=== PATIENT | male | born 1950 | race Caucasian/White ===

== ENCOUNTER 2017-03-20 19:22 | Emergency (ER) | payer BC, MEDICARE ==
[~2017-03-20] VITALS: Ht 180.3 cm; Wt 96.0 kg
[~2017-03-20 19:22] MED LIST: ASPI1TAB69 PO; CIAL20TA PO; CLON0.2T PO; DORZ2SOL7 RIGHT EYE; EXENINJ SQ; FOSI40TA PO; GABA600T PO; HUMALOG SQ; HYDR-3583 PO; HYDR-3801 PO; KETO75 PO; L-ME1CAP2 PO; LANTINJ SQ; LOVA20TA PO; LUMI0.01 RIGHT EYE; METF-382 PO; METO50TA PO; MONT10TA4 PO; TEST200I13 IM; cpap
[2017-03-20 19:30] VITALS: BP 169/98; PULSE 88; RESP 18; TEMP 98.3; O2SAT 95
[2017-03-20] MEDS ORDERED: EMPA1TAB3 PO (19:43)
--- NOTE | 2017-03-20 19:59 | PD ---
HPI Chief Complaint: Musculoskeletal Complaint Time Seen by Provider: 19:45 Travel History International Travel<30 days: No Contact w/Intl Traveler<30days: No Traveled to known affect area: No History of Present Illness HPI 66-year-old male presents to the emergency department for evaluation of right knee pain. He reports that while walking he felt a sharp pain and a cracking sensation in the right knee. He now has difficulty weightbearing. He reports the pain as sharp, nonradiating, worse with movement and relieved with rest, severity 8 out of 10 He denies numbness/tingling/weakness in the extremity. PFSH Past Medical History Narrative Medical Significant for hypertension, hyperlipidemia, diabetes, Arthritis: Yes Asthma: No Autoimmune Disease: No Anxiety: No Depression: No Heart Rhythm Problems: No Cancer: Yes (skin) Cardiovascular Problems: Yes High Cholesterol: Yes Chemotherapy: No Chest Pain: No Congestive Heart Failure: No COPD: No Cerebrovascular Accident: No Diabetes: Yes (type 2) Patient Takes Glucophage: No Endocrine: Yes GERD: No Glaucoma: Yes Genitourinary: No Hiatal Hernia: No Hypertension: Yes Immune Disorder: No Kidney Stones: No Musculoskeletal: Yes Neurologic: Yes Psychiatric: No Reproductive: No Respiratory: Yes (SLEEP APNEA) Migraines: No Radiation Therapy: No Renal Failure: No Seizures: No Sickle Cell Disease: No Sleep Apnea: Yes (C-PAP MACHINE) Thyroid Disease: No Ulcer: No ?: Not Past Surgical History Abdominal Surgery: No AICD: No Arteriovenous Shunt: No Cardiac Surgery: No Ear Surgery: No Endocrine Surgery: No Eye Surgery: No Genitourinary Surgery: No Gynecologic Surgery: No Insulin Pump: No Joint Replacement: Yes (left knee) Neurologic Surgery: No Oral Surgery: No Pacemaker: No Thoracic Surgery: No Other Surgery: Yes (DEBRIEDMENT TO LEFT FOOT, CHARCOT SYNDROME BILATERAL FEET) Social History Alcohol Use: No Tobacco Use: No Substance Use: No Allergies-Medications (Allergen,Severity, Reaction): Coded Allergies: Sulfa (Verified Allergy, Unknown, 03/20/17) Hydrochlorothiazide (Verified Adverse Reaction, Intermediate, Dizziness, ) Reported Meds & Prescriptions Reported Meds & Active Scripts Active Fosinopril (Fosinopril Sodium) 40 Mg Tab 40 Mg PO BID Hydrocodone-Acetaminophen 10-325 mg Tab 1 Tab PO Q4H PRN not to be filled before 8-13-17 Gabapentin 600 Mg Tab 600 Mg PO QID Ketoprofen 75 Mg Cap 75 Mg PO TID Metoprolol Tartrate 50 Mg Tab 3 Tab PO BID Clonidine (Clonidine HCl) 0.2 Mg Tab 0.2 Mg PO BID Cialis (Tadalafil) 20 Mg Tab 20 Mg PO DAILY PRN Do not exceed 1 dose/day. Effects may last 36 hr. [cpap] headgear, nasal pillows and tubing Reported Hydralazine (Hydralazine HCl) 100 Mg Tab 50 Mg PO Q12 Take with meals Bydureon Inj (Exenatide) 2 Mg Vial 2 Mg SQ Q7D Testosterone Enanthate Inj (Testosterone Enanthate) 200 Mg/Ml Inj 185 Mg IM Q14D Montelukast (Montelukast Sodium) 10 Mg Tab 10 Mg PO HS Aspirin 81 Mg Tabdr 81 Mg PO DAILY Lumigan Opth Drops (Bimatoprost) 0.01% Soln 1 Drop RIGHT EYE HS Cosopt Opth Drops (Dorzolamide-Timolol Opth Drops) 22.3-6.8 Mg/Ml Soln 1 Drop RIGHT EYE BID Lantus Solostar Pen Inj (Insulin Glargine) 300 Unit/3 Ml Pen 30 Units SQ HS Lovastatin 20 Mg Tab 20 Mg PO HS Metanx (o-Bizznnqafmip-Bmdqv) 1 Cap 1 Caplet PO BID Metformin ER (Metformin HCl) 1,000 Mg Josseline 1,000 Mg PO BID With evening meal Review of Systems Except as stated in HPI: all other systems reviewed are Neg Physical Exam Narrative GENERAL: Alert, well-appearing male in no acute distress SKIN: Focused skin assessment warm/dry. HEAD: Atraumatic. Normocephalic. CARDIOVASCULAR: Regular rate and rhythm. No murmur appreciated. RESPIRATORY: No accessory muscle use. Clear to auscultation. Breath sounds equal bilaterally. GASTROINTESTINAL: Abdomen soft, non-tender, nondistended. Hepatic and splenic margins not palpable. MUSCULOSKELETAL: No obvious deformities. No clubbing. No cyanosis. No edema. Right knee: Nontender to palpation. Pain with flexion. No effusion. Distal pulses present. 70s neurovascular intact. NEUROLOGICAL: Awake and alert. No obvious cranial nerve deficits. Motor grossly within normal limits. Normal speech. PSYCHIATRIC: Appropriate mood and affect; insight and judgment normal. Data Data Last Documented VS Vital Signs Date Time Temp Pulse Resp B/P Pulse Ox O2 Delivery O2 Flow Rate FiO2 03/20/17 19:30 98.3 88 18 169/98 95 Orders Knee, Complete (4vws) (03/20/17 ) MDM Medical Decision Making Medical Screen Exam Complete: Yes Emergency Medical Condition: Yes Differential Diagnosis Right knee painsprain versus fracture Narrative Course 66-year-old male with history of severe obvious osteoarthritis in both knees. Reports today while walking he felt a sharp pain in crack in his right knee. He has difficulty weightbearing on the knee now. X-ray of the knee show no acute fracture but severe osteoarthritis. Patient was put on crutches and [place] wrap knee for support and instructed to follow-up with his orthopedic doctor. He is in agreement to this plan Diagnosis Primary Impression: Right knee pain Qualified Code: M25.561 - Acute pain of right knee Referrals: Orthopedist Disposition: 01 DISCHARGE HOME Condition: Stable Earnestine Quinn Mar 20, 2017 19:59
--- NOTE | 2017-03-20 20:14 | RADHPO ---
EXAM DATE/TIME: 03/20/2017 19:52 [facility] COMPARISON: No previous studies available for comparison. INDICATIONS : Right knee pain. Patient states he heard a pop in his knee while walking down steps. MEDICAL HISTORY : Arthritis. SURGICAL HISTORY : Bilateral knee surgeries. ENCOUNTER: Initial ACUITY: 1 day PAIN SCORE: 4/10 LOCATION: Right knee. FINDINGS: No fracture or subluxation seen of the right knee. There is a small to moderate joint effusion. Severe tricompartment osteoarthritis with subchondral cystic change/sclerosis and large pedunculated marginal osteophytes noted. CONCLUSION: Severe right knee osteoarthritis with large osteophytes. Small to moderate nonspecific joint effusion . No fracture or subluxation. Mando Sorensen MD on March 20, 2017 at 20:10 Board Certified Radiologist. This report was verified electronically.
[2017-03-20] MEDS ORDERED: KETOROLAC TROMETHAMINE 60 MG/2 ML (IM) VIAL IM ONE (20:45)
== END 2017-03-20 20:53 | disposition home or self-care (01) ==
LOC: PHEFT 19:22
DX: M25.561 Pain in right knee (principal); I10 Essential (primary) hypertension; E11.9 Type 2 diabetes mellitus without complications; G47.30 Sleep apnea, unspecified; H40.9 Unspecified glaucoma; E78.5 Hyperlipidemia, unspecified
CPT/HCPCS: 73564; 96372; 99283; J1885

== ENCOUNTER 2017-07-19 19:04 | Inpatient (IN) | payer BC, MEDICARE ==
[~2017-07-19] VITALS: Ht 180.3 cm; Wt 95.3 kg
[~2017-07-19 19:04] MED LIST changes: +DULO1CAP2 PO; +EMPA1TAB3 PO; +[UNRECOGNIZED DRUG - SUPPLY]
[2017-07-19 19:21] VITALS: BP 157/74; PULSE 129; RESP 18; TEMP 103; O2SAT 96
--- NOTE | 2017-07-19 19:25 | PD ---
HPI Chief Complaint: Fever Time Seen by Provider: 19:25 Travel History International Travel<30 days: No Contact w/Intl Traveler<30days: No Traveled to known affect area: No History of Present Illness HPI 66 YO M with PMH of DM, ARTHUR, HTN, HLD, arthritis presents to the ED by EMS for evaluation of 2 day history of sinus congestion, clear rhinorrhea, nonproductive cough, fevers, chills. Gradual onset. Patient endorses one episode of posttussive emesis. Denies CP, palpitations, SOB. He states that he went to a clinic today and was provided a prescription for azithromycin. He has taken 1 dose. is at bedside, states that she administered 650 mg of Tylenol at approximately 6:30. She states that she took his temperature which was elevated. She also states that the patient seemed confused.This prompted them to seek evaluation at the ED. He did not receive this year's flu vaccination. PFSH Past Medical History Arthritis: Yes Asthma: No Autoimmune Disease: No Anxiety: No Depression: No Heart Rhythm Problems: No Cancer: Yes (skin) Cardiovascular Problems: Yes High Cholesterol: Yes Chemotherapy: No Chest Pain: No Congestive Heart Failure: No COPD: No Cerebrovascular Accident: No Diabetes: Yes (type 2) Patient Takes Glucophage: Yes Endocrine: Yes GERD: No Glaucoma: Yes Genitourinary: No Hiatal Hernia: No Hypertension: Yes Immune Disorder: No Kidney Stones: No Musculoskeletal: Yes Neurologic: Yes Psychiatric: No Reproductive: No Respiratory: Yes (SLEEP APNEA) Migraines: No Radiation Therapy: No Renal Failure: No Seizures: No Sickle Cell Disease: No Sleep Apnea: Yes (C-PAP MACHINE) Thyroid Disease: No Ulcer: No Past Surgical History Abdominal Surgery: No AICD: No Arteriovenous Shunt: No Cardiac Surgery: No Ear Surgery: No Endocrine Surgery: No Eye Surgery: No Genitourinary Surgery: No Gynecologic Surgery: No Insulin Pump: No Joint Replacement: Yes (left knee) Neurologic Surgery: No Oral Surgery: No Pacemaker: No Thoracic Surgery: No Other Surgery: Yes (DEBRIEDMENT TO LEFT FOOT, CHARCOT SYNDROME BILATERAL FEET) Social History Alcohol Use: No Tobacco Use: No Substance Use: No Allergies-Medications (Allergen,Severity, Reaction): Coded Allergies: Sulfa (Sulfonamide Antibiotics) (Unverified Allergy, Unknown, 07/19/17) hydrochlorothiazide (Unverified Adverse Reaction, Intermediate, Dizziness , 07/19/17) Reported Meds & Prescriptions Reported Meds & Active Scripts Active [Cologuard] 1 Kit Hydralazine (Hydralazine HCl) 100 Mg Tab 100 Mg PO Q12 1/2 tab (50 mg) Take with meals Humalog Inj (Insulin Human Lispro) 1,000 Unit/10 Ml Vial 6 Units SQ DIRECTED Preprandial [cpap] 13 cm of water pressure, headgear, nasal pillows and tubing Hydrocodone-Acetaminophen 10-325 mg Tab 1 Tab PO Q4H PRN not to be filled before 09-02-17 Fosinopril (Fosinopril Sodium) 40 Mg Tab 40 Mg PO BID Gabapentin 600 Mg Tab 600 Mg PO QID Ketoprofen 75 Mg Cap 75 Mg PO TID Metoprolol Tartrate 50 Mg Tab 3 Tab PO BID Clonidine (Clonidine HCl) 0.2 Mg Tab 0.2 Mg PO BID Cialis (Tadalafil) 20 Mg Tab 20 Mg PO DAILY PRN Do not exceed 1 dose/day. Effects may last 36 hr. Reported Aspirin 81 (Aspirin) 81 Mg Tabdr 81 Mg PO DAILY Duloxetine DR (Duloxetine HCl) 30 Mg Capdr 30 Mg PO DAILY Jardiance (Empagliflozin) 25 Mg Tab 25 Mg PO DAILY Bydureon Inj (Exenatide) 2 Mg Vial 2 Mg SQ Q7D Testosterone Enanthate Inj (Testosterone Enanthate) 200 Mg/Ml Inj 185 Mg IM Q14D Montelukast (Montelukast Sodium) 10 Mg Tab 10 Mg PO HS Lumigan Opth Drops (Bimatoprost) 0.01% Soln 1 Drop RIGHT EYE HS Cosopt Opth Drops (Dorzolamide-Timolol Opth Drops) 22.3-6.8 Mg/Ml Soln 1 Drop RIGHT EYE BID Lantus Solostar Pen Inj (Insulin Glargine) 300 Unit/3 Ml Pen 26 Units SQ HS Lovastatin 20 Mg Tab 20 Mg PO HS Metanx (q-Aogcqqkrsneh-Abvym) 1 Cap 1 Caplet PO BID Metformin ER (Metformin HCl) 1,000 Mg Josseline 1,000 Mg PO BID With evening meal Review of Systems Except as stated in HPI: all other systems reviewed are Neg Physical Exam Narrative GENERAL: Well-nourished, well-developed nontoxic appearing white male in no acute distress. A&O 4 SKIN: Focused skin assessment warm/dry. HEAD: Normocephalic. EYES: No scleral icterus. No injection or drainage. NECK: Supple, trachea midline. No JVD or lymphadenopathy. CARDIOVASCULAR: Regular rate and rhythm without murmurs, gallops, or rubs. RESPIRATORY: Diffuse rales bilaterally. Wet sounding cough. No accessory muscle use. GASTROINTESTINAL: Abdomen soft, non-tender, nondistended. MUSCULOSKELETAL: No cyanosis, or edema. BACK: Nontender without obvious deformity. No CVA tenderness. Data Data Last Documented VS Vital Signs Date Time Temp Pulse Resp B/P (MAP) Pulse Ox O2 Delivery O2 Flow Rate FiO2 07/19/17 21:53 99.8 07/19/17 20:24 117 18 97 Nasal Cannula 2.00 Orders Orders Electrocardiogram (07/19/17 19:35) Complete Blood Count With Diff (07/19/17 19:35) Comprehensive Metabolic Panel (07/19/17 19:35) Lactic Acid Sepsis Protocol (07/19/17 19:35) Urinalysis - C+S If Indicated (07/19/17 19:35) Influenzae A/B Antigen (07/19/17 19:35) Blood Culture (07/19/17 19:35) Chest, Single Ap (07/19/17 19:35) Blood Glucose (07/19/17 19:35) Ecg Monitoring (07/19/17 19:35) Iv Access Insert/Monitor (07/19/17 19:35) Oximetry (07/19/17 19:35) Ibuprofen (Motrin) (07/19/17 19:45) Ceftriaxone Inj (Rocephin Inj) (07/19/17 19:35) Azithromycin Inj (Zithromax Inj) (07/19/17 19:35) Sodium Chlor 0.9% 1000 Ml Inj (Ns 1000 M (07/19/17 19:57) Sodium Chlor 0.9% 1000 Ml Inj (Ns 1000 M (07/19/17 19:57) Sodium Chlor 0.9% 1000 Ml Inj (Ns 1000 M (07/19/17 19:57) Calcium Carbonate Chew (Tums Chew) (07/19/17 21:00) Admit Order (Ed Use Only) (07/19/17 22:09) Labs Laboratory Tests Test 07/19/17 19:45 07/19/17 20:10 White Blood Count 7.1 TH/MM3 Red Blood Count 5.90 MIL/MM3 Hemoglobin 13.5 GM/DL Hematocrit 42.0 % Mean Corpuscular Volume 71.2 FL Mean Corpuscular Hemoglobin 22.8 PG Mean Corpuscular Hemoglobin Concent 32.0 % Red Cell Distribution Width 15.6 % Platelet Count 117 TH/MM3 Mean Platelet Volume 8.4 FL CBC Comment AUTO DIFF Differential Total Cells Counted 100 Neutrophils % (Manual) 75 % Band Neutrophils % 6 % Lymphocytes % 7 % Monocytes % 7 % Eosinophils % 5 % Neutrophils # (Manual) 5.8 TH/MM3 Differential Comment FINAL DIFF MANUAL Platelet Estimate LOW Platelet Morphology Comment NORMAL Blood Urea Nitrogen 13 MG/DL Creatinine 0.82 MG/DL Random Glucose 128 MG/DL Total Protein 6.3 GM/DL Albumin 3.5 GM/DL Calcium Level 8.0 MG/DL Alkaline Phosphatase 101 U/L Aspartate Amino Transf (AST/SGOT) 16 U/L Alanine Aminotransferase (ALT/SGPT) 21 U/L Total Bilirubin 0.4 MG/DL Sodium Level 135 MEQ/L Potassium Level 4.0 MEQ/L Chloride Level 104 MEQ/L Carbon Dioxide Level 24.1 MEQ/L Anion Gap 7 MEQ/L Estimat Glomerular Filtration Rate 95 ML/MIN Lactic Acid Level 1.6 mmol/L Urine Color LIGHT-YELLOW Urine Turbidity CLEAR Urine pH 7.0 Urine Specific [place] 1.031 Urine Protein NEG mg/dL Urine Glucose (UA) 1000 mg/dL Urine Ketones NEG mg/dL Urine Occult Blood NEG Urine Nitrite NEG Urine Bilirubin NEG Urine Urobilinogen LESS THAN 2.0 MG/DL Urine Leukocyte Esterase NEG Urine Squamous Epithelial Cells <1 /hpf Microscopic Urinalysis Comment CATH-CULT NOT IND MDM Medical Decision Making Medical Screen Exam Complete: Yes Emergency Medical Condition: Yes Differential Diagnosis influenza versus viral syndrome versus PNA versus other Narrative Course 66 YO M with PMH of DM, ARTHUR, HTN, HLD, arthritis presents to the ED by EMS for evaluation of 2 day history of sinus congestion, clear rhinorrhea, nonproductive cough, fevers, chills. Gradual onset. Patient endorses one episode of posttussive emesis. Denies CP, SOB, palpitations. He took one does of a Z-pack today. is at bedside, states that she administered 650 mg of Tylenol at approximately 6:30. She also states that the patient seemed confused this evening. This prompted them to seek evaluation at the ED. He did not receive this year's flu vaccination. Patient's temperature is 103.0 orally, pulse 129, respiratory rate 18, BP 157/74, 96% on room air on presentation. The patient is alert, oriented on physical exam. No appreciable M/R/G. Coarse rales in the bilateral lung malik. Abdomen soft, nontender. No lower extremity edema. IV was established. Blood cultures were obtained. Sepsis fluid resuscitation protocol was initiated. The patient was administered 800 mg ibuprofen by mouth, IV Rocephin and IV azithromycin. EKG rate 125, sinus tachycardia. LA interval 190, QRS 88, QTC 364. Normal axis. Reviewed by Dr. Srinivasan. CXR: Retrocardiac left lower lobe patchy infiltrate per radiology read. CBC: WBC 7.1. Hemoglobin 13.5. CMP: BUN 13, creatinine 0.82. Calcium 8.0. Glucose 128. Lactic acid 1.6Influenza swab negative. The patient meets sepsis criteria. Blood pressure improved to 146/67 on recheck , HR 117. Temp 99.8 on recheck. Patient was administered 1g calcium chew. Plan to admit for sepsis, pneumonia. I discussed this with the family who are agreeable. I spoke with the residents who agree to accept the patient to the medical service under Dr. Miles. Please see medicine notes for disposition. Sepsis Criteria SIRS Criteria (2 or more): Temp > 100.9 or < 96.8, Heart rate over 90 Sepsis Criteria (SIRS+source): Infect source susp/known Sandi Molina Jul 19, 2017 19:25
[2017-07-19] MEDS ORDERED: ASPI-110 PO (19:27)
[2017-07-19] MEDS ORDERED: cefTRIAXone INJ 2,000 MG in SODIUM CHLORIDE 0.9% INJ 100 ML IV STA (19:35)
[2017-07-19] MEDS ORDERED: AZITHROMYCIN INJ 500 MG in SODIUM CHLOR 0.9% 250 ML INJ 250 ML IV STA (19:35)
[2017-07-19 19:40] VITALS: O2SAT 90
[2017-07-19] MEDS ORDERED: IBUPROFEN 800 MG TAB PO ONE (19:45)
[2017-07-19] MEDS ORDERED: SODIUM CHLOR 0.9% 1000 ML INJ 1,000 ML IV ONE ×3 (19:57)
--- NOTE | 2017-07-19 20:02 | RADRPT ---
EXAM DATE/TIME: 07/19/2017 19:51 [facility] COMPARISON: No previous studies available for comparison. INDICATIONS : Fever, short of breath MEDICAL HISTORY : None. SURGICAL HISTORY : None. ENCOUNTER: Initial ACUITY: 1 day PAIN SCORE: 0/10 LOCATION: chest FINDINGS: There is motion artifact. There are findings raising the question as to a retrocardiac patchy area of infiltrate. CONCLUSION: Findings with motion artifact suggesting possible retrocardiac left lower lobe patchy infiltrate Dusty Castellanos MD on July 19, 2017 at 20:00 Board Certified Radiologist. This report was verified electronically.
[2017-07-19 20:16] LABS: MEAN CELL VOLUME 71.2 FL (80.0-100.0); MEAN CORPUSCULAR HEMOGLOBIN 22.8 PG (27.0-34.0); PLATELET COUNT 117 TH/MM3 (150-450); RED CELL DISTRIBUTION WIDTH 15.6 % (11.6-17.2); WHITE BLOOD COUNT 7.1 TH/MM3 (4.0-11.0)
[2017-07-19 20:17] LABS: HEMO FLAGS AUTO DIFF
[2017-07-19 20:20] LABS: ANION GAP 7 MEQ/L (5-15); AST (GOT) 16 U/L (15-37); BICARBONATE 24.1 MEQ/L (21.0-32.0); BLOOD UREA NITROGEN 13 MG/DL (7-18); CHLORIDE 104 MEQ/L (98-107); GLOMERULAR FILTRATION RATE 95 ML/MIN (>89); SODIUM (NA) 135 MEQ/L (136-145)
[2017-07-19 20:21] LABS: ALT (GPT) 21 U/L (12-78)
[2017-07-19 20:23] LABS: ALKALINE PHOSPHATASE 101 U/L (45-117); TOTAL BILIRUBIN ADULT 0.4 MG/DL (0.2-1.0)
[2017-07-19 20:24] VITALS: BP 157/74; PULSE 117; RESP 18; O2SAT 97
[2017-07-19 20:43] LABS: BLOOD, URINE NEG (NEG); GLUCOSE,URINE 1000 mg/dL (NEG); KETONE, URINE NEG (NEG); NITRITE,URINE NEG (NEG); SQUAMOUS EPITHELIAL CELL URINE <1 /hpf (0-5); URINE COLOR LIGHT-YELLOW (YELLW/STRAW)
[2017-07-19 20:44] LABS: COMMENT (UR) CATH-CULT NOT IND; CULTURE IF INDICATED CATH CULTURE NOT IND
[2017-07-19 20:51] LABS: BANDS 6 % (0-6); EOSINOPHILS 5 % (0-4); NEUTROPHIL # MANUAL DIFF 5.8 TH/MM3 (1.8-7.7); POLYS (SEG NEUTROPHILS) 75 % (16-70); WBC DIFF SAMPLE 100
[2017-07-19 20:52] LABS: PLATELET ESTIMATE SMEAR LOW (NORMAL); PLATELET MORPHOLOGY NORMAL (NORMAL); SCAN/DIFF FINAL DIFF MANUAL
[2017-07-19] MEDS ORDERED: CALCIUM CARBONATE 500 MG CHEWABLE TAB CHEW ONE (21:00)
[2017-07-19 21:53] VITALS: TEMP 99.8
[2017-07-19] MEDS ORDERED: SODIUM CHLORIDE 0.9% FLUSH 10 ML FLUSH IV FLUSH PRN (22:15)
--- NOTE | 2017-07-19 22:16 | HHI.HP ---
[facility] Service Family Medicine Primary Care Physician Aleja Hillman MD Admission Diagnosis sepsis, pneumonia Diagnoses: Chief Complaint: Delirium and cough International Travel<30 Days: No Contact w/Intl Traveler<30days: No Known Affected Area: No History of Present Illness Patient is a 66-year-old male with a past medical history significant for DM type II, ARTHUR, hypertension, and testosterone deficiency who presented today with delirium and cough. Per patient's , patient was feeling congested with a sore throat for the past couple days. This morning, she took him to her work clinic for a cough and he was prescribed a Z-Jovan. He proceeded to go out to lunch and do chores around the house when he suddenly started acting delirious and spiking a fever of 101. His gave him Tylenol and called 911 because she was unable to get into the car. He was brought to the emergency department via [facility] where he was found to have a temperature of 103 F. Review of Systems Constitutional: COMPLAINS OF: Fatigue, Fever Eyes: DENIES: Eye pain Ears, nose, mouth, throat: COMPLAINS OF: Nasal discharge, Throat pain, Running Nose, DENIES: Ear Pain Respiratory: COMPLAINS OF: Cough, Sputum production, DENIES: Wheezing, Shortness of breath Cardiovascular: DENIES: Chest pain, Palpitations, Lower Extremity Edema Gastrointestinal: DENIES: Abdominal pain, Nausea, Vomiting Musculoskeletal: DENIES: Muscle aches Integumentary: DENIES: Rash Hematologic/lymphatic: DENIES: Lymphadenopathy Neurologic: DENIES: Headache Psychiatric: COMPLAINS OF: Confusion Past Family Social History Past Medical History Diabetes Charcot foot Arthritis Diabetic neuropathy Hypertension Testosterone deficiency Dental issues ARTHUR Past Surgical History Knee replacement Repair of Charcot foot Repair of hammertoes Dental extractions (full mouth) and dentures Reported Medications Reported Meds & Active Scripts Active [Cologuard] 1 Kit Hydralazine (Hydralazine HCl) 100 Mg Tab 100 Mg PO Q12 1/2 tab (50 mg) Take with meals Humalog Inj (Insulin Human Lispro) 1,000 Unit/10 Ml Vial 6 Units SQ DIRECTED Preprandial [cpap] 13 cm of water pressure, headgear, nasal pillows and tubing Hydrocodone-Acetaminophen 10-325 mg Tab 1 Tab PO Q4H PRN not to be filled before 09-02-17 Fosinopril (Fosinopril Sodium) 40 Mg Tab 40 Mg PO BID Gabapentin 600 Mg Tab 600 Mg PO QID Ketoprofen 75 Mg Cap 75 Mg PO TID Metoprolol Tartrate 50 Mg Tab 3 Tab PO BID Clonidine (Clonidine HCl) 0.2 Mg Tab 0.2 Mg PO BID Cialis (Tadalafil) 20 Mg Tab 20 Mg PO DAILY PRN Do not exceed 1 dose/day. Effects may last 36 hr. Reported Aspirin 81 (Aspirin) 81 Mg Tabdr 81 Mg PO DAILY Duloxetine DR (Duloxetine HCl) 30 Mg Capdr 30 Mg PO DAILY Jardiance (Empagliflozin) 25 Mg Tab 25 Mg PO DAILY Bydureon Inj (Exenatide) 2 Mg Vial 2 Mg SQ Q7D Testosterone Enanthate Inj (Testosterone Enanthate) 200 Mg/Ml Inj 185 Mg IM Q14D Montelukast (Montelukast Sodium) 10 Mg Tab 10 Mg PO HS Lumigan Opth Drops (Bimatoprost) 0.01% Soln 1 Drop RIGHT EYE HS Cosopt Opth Drops (Dorzolamide-Timolol Opth Drops) 22.3-6.8 Mg/Ml Soln 1 Drop RIGHT EYE BID Lantus Solostar Pen Inj (Insulin Glargine) 300 Unit/3 Ml Pen 26 Units SQ HS Lovastatin 20 Mg Tab 20 Mg PO HS Metanx (t-Jumizpeqtqke-Zwnsm) 1 Cap 1 Caplet PO BID Metformin ER (Metformin HCl) 1,000 Mg Josseline 1,000 Mg PO BID With evening meal Allergies: Coded Allergies: Sulfa (Sulfonamide Antibiotics) (Unverified Allergy, Unknown, 07/19/17) hydrochlorothiazide (Unverified Adverse Reaction, Intermediate, Dizziness , 07/19/17) Active Ordered Medications Current Medications Medications (Trade) Dose Ordered Sig/Sawyer Route Start Time Stop Time Status Last Admin (NS Flush) 2 ml UNSCH PRN IV FLUSH 07/19/17 22:15 UNV (NS Flush) 2 ml BID IV FLUSH 07/20/17 09:00 UNV Family History Children: 3 daughters, one with history of carotid artery dissection 2 Social History Marital Status: Living Situation: Lives with his , they just moved to a single-story home Education: College Work history: Retired from [employer] Tobacco: No Alcohol: No Illicit drug use: none Physical Exam Vital Signs Vital Signs Date Time Temp Pulse Resp B/P (MAP) Pulse Ox O2 Delivery O2 Flow Rate FiO2 07/19/17 21:53 99.8 07/19/17 20:24 117 18 157/74 (101) 97 Nasal Cannula 2.00 07/19/17 19:40 90 Nasal Cannula 2.00 07/19/17 19:21 103.0 129 18 157/74 (101) 96 Physical Exam GENERAL: This is a well-nourished, well-developed patient, in no apparent distress. SKIN: No rashes, ecchymoses or lesions. Warm and moist. HEAD: Atraumatic. Normocephalic. No temporal or scalp tenderness. EYES: Pupils equal round and reactive. Extraocular motions intact. No scleral icterus. No injection or drainage. ENT: Nose without bleeding, purulent drainage or septal hematoma. Throat without erythema, tonsillar hypertrophy or exudate. Uvula midline. Airway patent. NECK: Trachea midline. No JVD or lymphadenopathy. Supple, nontender, no meningeal signs. CARDIOVASCULAR: Regular rate and rhythm without murmurs, gallops, or rubs. RESPIRATORY: Crackles in bases bilaterally. Breathing comfortably with 2L NC. No accessory muscle use. GASTROINTESTINAL: Abdomen soft, non-tender, nondistended. No hepato-splenomegaly , or palpable masses. No guarding. MUSCULOSKELETAL: Extremities without clubbing, cyanosis, or edema. No joint tenderness, effusion, or edema noted. NEUROLOGICAL: Awake and alert. Cranial nerves II through XII intact. Motor and sensory grossly within normal limits. Normal speech. Laboratory Laboratory Tests Test 07/19/17 19:45 07/19/17 20:10 White Blood Count 7.1 Red Blood Count 5.90 Hemoglobin 13.5 Hematocrit 42.0 Mean Corpuscular Volume 71.2 Mean Corpuscular Hemoglobin 22.8 Mean Corpuscular Hemoglobin Concent 32.0 Red Cell Distribution Width 15.6 Platelet Count 117 Mean Platelet Volume 8.4 CBC Comment AUTO DIFF Differential Total Cells Counted 100 Neutrophils % (Manual) 75 Band Neutrophils % 6 Lymphocytes % 7 Monocytes % 7 Eosinophils % 5 Neutrophils # (Manual) 5.8 Differential Comment FINAL DIFF MANUAL Platelet Estimate LOW Platelet Morphology Comment NORMAL Blood Urea Nitrogen 13 Creatinine 0.82 Random Glucose 128 Total Protein 6.3 Albumin 3.5 Calcium Level 8.0 Alkaline Phosphatase 101 Aspartate Amino Transf (AST/SGOT) 16 Alanine Aminotransferase (ALT/SGPT) 21 Total Bilirubin 0.4 Sodium Level 135 Potassium Level 4.0 Chloride Level 104 Carbon Dioxide Level 24.1 Anion Gap 7 Estimat Glomerular Filtration Rate 95 Lactic Acid Level 1.6 Urine Color LIGHT-YELLOW Urine Turbidity CLEAR Urine pH 7.0 Urine Specific [place] 1.031 Urine Protein NEG Urine Glucose (UA) 1000 Urine Ketones NEG Urine Occult Blood NEG Urine Nitrite NEG Urine Bilirubin NEG Urine Urobilinogen LESS THAN 2.0 Urine Leukocyte Esterase NEG Urine Squamous Epithelial Cells <1 Microscopic Urinalysis Comment CATH-CULT NOT IND Date/Time Source Procedure Growth Status 07/19/17 19:55 Nasal Washing Influenza Types A,B Antigen (DAJUAN) - Final NEGATIVE FOR FLU A AND B ANTIGEN.... Complete Result Diagram: 07/19/17194407/19/171944 Imaging Last Impressions Chest X-Ray 07/19/171934 Signed Impressions: Service Date/Time: Wednesday, July 19, 2017 19:51 - CONCLUSION: Findings with motion artifact suggesting possible retrocardiac left lower lobe patchy infiltrate MD Kevan Potter VTE Risk Assessment Capfany VTE Risk Assessment: Mod/High Risk (score >= 2) Caprini Risk Assessment Model Point Value = 1 Point Value = 2 Point Value = 3 Point Value = 5 Age 41-60 Minor surgery BMI > 25 kg/m2 Swollen legs Varicose veins or History of unexplained or recurrent spontaneous Oral contraceptives or hormone replacement Sepsis (< 1 month) Serious lung disease, including pneumonia (< 1 month) Abnormal pulmonary function Acute myocardial infarction Congestive heart failure (< 1 month) History of inflammatory bowel disease Medical patient at bed rest Age 61-74 Arthroscopic surgery Major open surgery (> 45 min) Laparoscopic surgery (> 45 min) Malignancy Confined to bed (> 72 hours) Immobilizing plaster cast Central venous access Age >= 75 History of VTE Family history of VTE Factor V Leiden Prothrombin [id number] Lupus anticoagulant Anticardiolipin antibodies Elevated serum homocysteine Heparin-induced thrombocytopenia Other congenital or acquired thrombophilia Stroke (< 1 month) Elective arthroplasty Hip, pelvis, or leg fracture Acute spinal cord injury (< 1 month) Prophylaxis Regimen Total Risk Factor Score Risk Level Prophylaxis Regimen 0-1 Low Early ambulation 2 Moderate Order ONE of the following: *Sequential Compression Device (SCD) *Heparin 5000 units SQ BID 3-4 Higher Order ONE of the following medications: *Heparin 5000 units SQ TID *Enoxaparin/Lovenox 40 mg SQ daily (WT < 150 kg, CrCl > 30 mL/min) *Enoxaparin/Lovenox 30 mg SQ daily (WT < 150 kg, CrCl > 10-29 mL/min) *Enoxaparin/Lovenox 30 mg SQ BID (WT < 150 kg, CrCl > 30 mL/min) AND/OR *Sequential Compression Device (SCD) 5 or more Highest Order ONE of the following medications: *Heparin 5000 units SQ TID (Preferred with Epidurals) *Enoxaparin/Lovenox 40 mg SQ daily (WT < 150 kg, CrCl > 30 mL/min) *Enoxaparin/Lovenox 30 mg SQ daily (WT < 150 kg, CrCl > 10-29 mL/min) *Enoxaparin/Lovenox 30 mg SQ BID (WT < 150 kg, CrCl > 30 mL/min) AND *Sequential Compression Device (SCD) Assessment and Plan Assessment and Plan Patient is a 66-year-old male with a past medical history significant for DM type II, hypertension, and testosterone deficiency who presented today with delirium and cough and is admitted for pneumonia. Code Status Full Code Discussed Condition With wdw Dr. Samano and Dr. Miles Problem List: (1) CAP (community acquired pneumonia) ICD Codes: J18.9 - Pneumonia, unspecified organism Plan: - CXR shows left lower lobe patchy infiltrate - Causitive ddx includes S. pneumo, mycoplasma, Moraxella, MSSA, viral URI, Klebsiella, vs other. Less likely MRSA or pseudomonas being community-acquired pneumonia. - WBC 7.1, neutrophil %75, temp 103 supporting infectious eitiology. - Influenza negative Plan: - Azithromycin 500 mg by mouth every 24 hours x 5 days. - Rocephin 1 g IV every 24 hours for duration of hospitalization. - Duonebs Q 6 hours scheduled. - Albuterol Q1 hr PRN SOB. - Supplemental O2 and pulse ox monitoring. - Acapella, incentive spirometer. - Blood cultures x 2 - Sputum cultures - pneumococcal and legionella urinary antigens (2) Type 2 diabetes mellitus with Charcot's joint arthropathy ICD Codes: E11.610 - Type 2 diabetes mellitus with Charcot's joint arthropathy Status: Chronic Plan: Hold home Lantus 26units HS and Lispro 6units TIDAC, Exenatide 2mg SQ Q7days, metformin 1000mg PO BID, Jardiance 25mg PO daily Medium dose SSI with Accuchecks Diabetic Diet (3) Benign essential HTN ICD Codes: I10 - Benign essential HTN Status: Chronic Plan: Continue home clonidine 0.2mg PO BID, Hydralazine 100mg PO Q12H, Metoprolol 150mg PO BID, Fosinopril 40mg PO BID (4) ARTHUR (obstructive sleep apnea) ICD Codes: G47.33 - Obstructive sleep apnea (adult) (pediatric) Status: Chronic Plan: CPAP at night at home, continue inpatient (5) Nutrition, metabolism, and development symptoms ICD Codes: R63.8 - Other symptoms and signs concerning food and fluid intake Plan: Fluids: NS @ 125ml/hr Electrolytes: wnl, continue to monitor and replete PRN Nutrition: Diabetic Diet DVT PPx: Lovenox 40mg SQ Q24H, SCD's Physician Certification 2 Midnight Certification Type: Admission for Inpatient Services Order for Inpatient Services The services are ordered in accordance with Medicare regulations or non- Medicare payer requirements, as applicable. In the case of services not specified as inpatient-only, they are appropriately provided as inpatient services in accordance with the 2-midnight benchmark. Estimated LOS (days): 3 days is the estimated time the patient will need to remain in the hospital, assuming treatment plan goals are met and no additional complications. Post-Hospital Plan: Home Problem Qualifiers (1) CAP (community acquired pneumonia): Qualified Codes: J18.1 - Lobar pneumonia, unspecified organism Sugar Velasquez MD, R3 Jul 19, 2017 22:16
[2017-07-19 22:21] VITALS: BP 150/76; PULSE 115; RESP 20; TEMP 99.8; O2SAT 98
[2017-07-19] MEDS ORDERED: ONDANSETRON HCL 4 MG/2 ML VIAL IV PUSH PRN (22:30)
[2017-07-19] MEDS ORDERED: ACETAMINOPHEN 325 MG TAB PO PRN (22:30)
[2017-07-19] MEDS ORDERED: RESP: ALBUTEROL 2.5 MG/IPRATROPIUM 0.5 MG NEB (PRN) INH (22:30)
[2017-07-19] MEDS ORDERED: guaiFENesin/DEXTROMETHORPHAN 200 MG/20 MG/10 ML CUP PO PRN (22:30)
[2017-07-19] MEDS: ENOXAPARIN SODIUM 40 MG/0.4 ML SYRINGE SQ SCH (23:00)
[2017-07-19] MEDS ORDERED: CYMB30CA PO (23:14)
[2017-07-20] VITALS (11 sets, daily range): BP systolic 123–164; BP diastolic 60–78; PULSE 83–118; RESP 16–20; TEMP 97.8–99.4; O2SAT 93–98
[2017-07-20] MEDS ORDERED: GLUCAGON 1 MG/ML VIAL OTHER PRN
[2017-07-20] MEDS ORDERED: DEXTROSE 50% IN WATER 50 ML VIAL(D50) IV PUSH PRN
[2017-07-20] MEDS: ACETAMINOPHEN/HYDROcodone 325 MG/10 MG TAB PO PRN ×3 (00:03→19:45)
[2017-07-20] MEDS: SODIUM CHLOR 0.9% 1000 ML INJ 1,000 ML IV SCH ×3 (04:06→18:00)
[2017-07-20] MEDS: INSULIN ASPART SUPPLEMENTAL SCALE SQ SCH ×4 (08:00→21:00)
[2017-07-20 08:06] LABS: AUTOMATED NEUTROPHIL # 11.5 TH/MM3 (1.8-7.7); BASOPHIL % 0.2 % (0.0-2.0); EOSINOPHIL # 0.1 TH/MM3 (0-0.4); EOSINOPHIL % 0.4 % (0.0-4.0); HEMATOCRIT 42.3 % (39.0-51.0); HEMO FLAGS DIFF FINAL; LYMPH % 8.8 % (9.0-44.0); LYMPHOCYTE # 1.2 TH/MM3 (1.0-4.8); MEAN CELL VOLUME 71.9 FL (80.0-100.0); MONO % 5.3 % (0.0-8.0); NEUT % 85.3 % (16.0-70.0); PLATELET COUNT 128 TH/MM3 (150-450); RED BLOOD COUNT 5.89 MIL/MM3 (4.50-5.90); RED CELL DISTRIBUTION WIDTH 16.1 % (11.6-17.2); WHITE BLOOD COUNT 13.4 TH/MM3 (4.0-11.0)
[2017-07-20 08:51] LABS: BICARBONATE 24.5 MEQ/L (21.0-32.0); POTASSIUM 4.1 MEQ/L (3.5-5.1)
[2017-07-20] MEDS: SODIUM CHLORIDE 0.9% FLUSH 10 ML FLUSH IV FLUSH SCH ×2 (09:00→21:00)
[2017-07-20] MEDS ORDERED: METHYLFOLATE ALGAE PO SCH (09:00)
[2017-07-20] MEDS: ASPIRIN EC 81 MG TABEC PO SCH (09:17)
[2017-07-20] MEDS: hydrALAZINE HCL 100 MG TAB PO SCH ×2 (09:18→21:15)
[2017-07-20] MEDS: LISINOPRIL 20 MG TAB PO SCH ×2 (09:19→21:14)
[2017-07-20] MEDS: cloNIDine HCL 0.2 MG TAB PO SCH ×2 (09:20→21:14)
[2017-07-20] MEDS: METOPROLOL TARTRATE 50 MG TAB PO SCH ×2 (09:20→21:15)
[2017-07-20] MEDS: AZITHROMYCIN 250 MG TAB PO SCH (09:20)
[2017-07-20] MEDS: GABAPENTIN 300 MG CAP PO SCH ×4 (09:25→21:14)
--- NOTE | 2017-07-20 10:27 | HHI.HP ---
[facility] Service Family Medicine Primary Care Physician Aleja Hillman MD Admission Diagnosis sepsis, pneumonia Diagnoses: (1) CAP (community acquired pneumonia) Diagnosis: Principal (2) Type 2 diabetes mellitus with Charcot's joint arthropathy Diagnosis: Principal (3) Benign essential HTN Diagnosis: Principal (4) ARTHUR (obstructive sleep apnea) Diagnosis: Principal (5) Nutrition, metabolism, and development symptoms Diagnosis: Principal International Travel<30 Days: No Contact w/Intl Traveler<30days: No Known Affected Area: No History of Present Illness Mr Garner is a 66-year-old male with a past medical history significant for DM type II, ARTHUR, hypertension, and testosterone deficiency who presented with delirium, high fever and cough. Per patient's , patient was feeling congested with a sore throat for the past couple days. This morning, she took him to her work clinic for a cough and he was prescribed a Z-Jovan. He had achy muscles and vomited several times but denies other GI sxs. He denies SOB as well. He proceeded to go out to lunch and do chores around the house when he suddenly started acting delirious and spiking a fever of 101. His gave him Tylenol and called 911 because he was unable to get into the car. He was brought to the emergency department via [facility] where he was found to have a temperature of 103 F. He was admitted and started on abx for a community acquired pneumonia. He feels improved today but is still having the sore throat and generalized achiness. He used bipap last night as he did not have his home machine but is not in any respiratory distress nor using accessory muscles. Review of Systems Other Constitutional: COMPLAINS OF: Fatigue, Fever Eyes: DENIES: Eye pain Ears, nose, mouth, throat: COMPLAINS OF: Nasal discharge, Throat pain, Running Nose, DENIES: Ear Pain Respiratory: COMPLAINS OF: Cough, Sputum production, DENIES: Wheezing, Shortness of breath Cardiovascular: DENIES: Chest pain, Palpitations, Lower Extremity Edema Gastrointestinal: DENIES: Abdominal pain, Nausea, Vomiting Musculoskeletal: DENIES: Muscle aches Integumentary: DENIES: Rash Hematologic/lymphatic: DENIES: Lymphadenopathy Neurologic: DENIES: Headache Psychiatric: COMPLAINS OF: Confusion Past Family Social History Past Medical History Diabetes Charcot foot Arthritis Diabetic neuropathy bilateral feet and hands Hypertension Testosterone deficiency Dental issues ARTHUR Past Surgical History Knee replacement Repair of Charcot foot on the left Repair of hammertoes Dental extractions (full mouth) and dentures Allergies: Coded Allergies: Sulfa (Sulfonamide Antibiotics) (Unverified Allergy, Unknown, 07/19/17) hydrochlorothiazide (Unverified Adverse Reaction, Intermediate, Dizziness , 07/19/17) Family History Children: 3 daughters, one with history of carotid artery dissection 2 Social History Marital Status: Living Situation: Lives with his , they just moved to a single-story home Education: College Work history: Retired from [employer] after knee replacement Tobacco: No Alcohol: No Illicit drug use: none Physical Exam Vital Signs Vital Signs Date Time Temp Pulse Resp B/P (MAP) Pulse Ox O2 Delivery O2 Flow Rate FiO2 07/20/17 10:08 98 07/20/17 08:00 99.4 100 20 143/69 (93) 97 07/20/17 05:14 98.1 118 18 131/66 (87) 95 07/20/17 03:29 93 21 07/20/17 03:29 93 BiPAP 21 07/20/17 00:52 99.4 118 16 131/66 (87) 96 07/20/17 00:30 110 07/19/17 22:56 07/19/17 22:21 99.8 115 20 150/76 (100) 98 Nasal Cannula 2.00 07/19/17 21:53 99.8 07/19/17 20:24 117 18 157/74 (101) 97 Nasal Cannula 2.00 07/19/17 19:40 90 Nasal Cannula 2.00 07/19/17 19:21 103.0 129 18 157/74 (101) 96 Physical Exam GENERAL: This is a well-nourished, well-developed patient, in no apparent distress sitting in a chair this am. SKIN: No rashes, ecchymoses or lesions. Warm and moist. HEAD: Atraumatic. Normocephalic. EYES: Pupils equal round and reactive. Extraocular motions intact. No scleral icterus. No injection or drainage. ENT: Nose without bleeding, purulent drainage or septal hematoma. Throat normal appearance except pt not able with repeated attempts to see back of throat but seen in ED. Airway patent. NECK: Trachea midline. No JVD or lymphadenopathy. Supple, nontender, no meningeal signs. CARDIOVASCULAR: Regular rate and rhythm without murmurs, gallops, or rubs. RESPIRATORY: Crackles in bases bilaterally. Breathing comfortably with 2L NC. No accessory muscle use. GASTROINTESTINAL: Abdomen soft, non-tender, nondistended. No hepato-splenomegaly , or palpable masses. No guarding. MUSCULOSKELETAL: Extremities without clubbing, cyanosis, or edema. No joint tenderness, effusion, or edema noted. NEUROLOGICAL: Awake and alert. Cranial nerves II through XII intact. Motor and sensory grossly within normal limits. Normal speech. Laboratory Laboratory Tests Test 07/19/17 19:45 07/19/17 20:10 07/20/17 07:17 White Blood Count 7.1 13.4 Red Blood Count 5.90 5.89 Hemoglobin 13.5 13.6 Hematocrit 42.0 42.3 Mean Corpuscular Volume 71.2 71.9 Mean Corpuscular Hemoglobin 22.8 23.0 Mean Corpuscular Hemoglobin Concent 32.0 32.0 Red Cell Distribution Width 15.6 16.1 Platelet Count 117 128 Mean Platelet Volume 8.4 8.6 CBC Comment AUTO DIFF DIFF FINAL Differential Total Cells Counted 100 Neutrophils % (Manual) 75 Band Neutrophils % 6 Lymphocytes % 7 Monocytes % 7 Eosinophils % 5 Neutrophils # (Manual) 5.8 Differential Comment FINAL DIFF MANUAL Platelet Estimate LOW Platelet Morphology Comment NORMAL Blood Urea Nitrogen 13 10 Creatinine 0.82 0.66 Random Glucose 128 75 Total Protein 6.3 Albumin 3.5 Calcium Level 8.0 8.7 Alkaline Phosphatase 101 Aspartate Amino Transf (AST/SGOT) 16 Alanine Aminotransferase (ALT/SGPT) 21 Total Bilirubin 0.4 Sodium Level 135 139 Potassium Level 4.0 4.1 Chloride Level 104 106 Carbon Dioxide Level 24.1 24.5 Anion Gap 7 9 Estimat Glomerular Filtration Rate 95 122 Lactic Acid Level 1.6 Urine Color LIGHT-YELLOW Urine Turbidity CLEAR Urine pH 7.0 Urine Specific [place] 1.031 Urine Protein NEG Urine Glucose (UA) 1000 Urine Ketones NEG Urine Occult Blood NEG Urine Nitrite NEG Urine Bilirubin NEG Urine Urobilinogen LESS THAN 2.0 Urine Leukocyte Esterase NEG Urine Squamous Epithelial Cells <1 Microscopic Urinalysis Comment CATH-CULT NOT IND Neutrophils (%) (Auto) 85.3 Lymphocytes (%) (Auto) 8.8 Monocytes (%) (Auto) 5.3 Eosinophils (%) (Auto) 0.4 Basophils (%) (Auto) 0.2 Neutrophils # (Auto) 11.5 Lymphocytes # (Auto) 1.2 Monocytes # (Auto) 0.7 Eosinophils # (Auto) 0.1 Basophils # (Auto) 0.0 Date/Time Source Procedure Growth Status 07/19/17 19:45 Blood Peripheral Aerobic Blood Culture Pending Received 07/19/17 19:45 Blood Peripheral Anaerobic Blood Culture Pending Received 07/19/17 19:55 Nasal Washing Influenza Types A,B Antigen (DAJUAN) - Final NEGATIVE FOR FLU A AND B ANTIGEN.... Complete 07/19/17 20:10 Urine Clean Catch Legionella Antigen - Final PRESUMPTIVE NEGATIVE FOR LEGIONELLA P... Complete 07/19/17 20:10 Streptococcus pneumoniae Antigen (M - Final Pos For Pneumococcal Antigen Complete Result Diagram: 07/20/1771607/20/17716 Imaging Last Impressions Chest X-Ray 07/19/171934 Signed Impressions: Service Date/Time: Wednesday, July 19, 2017 19:51 - CONCLUSION: Findings with motion artifact suggesting possible retrocardiac left lower lobe patchy infiltrate MD Minoo Potteri VTE Risk Assessment Caprini VTE Risk Assessment: Mod/High Risk (score >= 2) Caprini Risk Assessment Model Point Value = 1 Point Value = 2 Point Value = 3 Point Value = 5 Age 41-60 Minor surgery BMI > 25 kg/m2 Swollen legs Varicose veins or History of unexplained or recurrent spontaneous Oral contraceptives or hormone replacement Sepsis (< 1 month) Serious lung disease, including pneumonia (< 1 month) Abnormal pulmonary function Acute myocardial infarction Congestive heart failure (< 1 month) History of inflammatory bowel disease Medical patient at bed rest Age 61-74 Arthroscopic surgery Major open surgery (> 45 min) Laparoscopic surgery (> 45 min) Malignancy Confined to bed (> 72 hours) Immobilizing plaster cast Central venous access Age >= 75 History of VTE Family history of VTE Factor V Leiden Prothrombin [id number] Lupus anticoagulant Anticardiolipin antibodies Elevated serum homocysteine Heparin-induced thrombocytopenia Other congenital or acquired thrombophilia Stroke (< 1 month) Elective arthroplasty Hip, pelvis, or leg fracture Acute spinal cord injury (< 1 month) Prophylaxis Regimen Total Risk Factor Score Risk Level Prophylaxis Regimen 0-1 Low Early ambulation 2 Moderate Order ONE of the following: *Sequential Compression Device (SCD) *Heparin 5000 units SQ BID 3-4 Higher Order ONE of the following medications: *Heparin 5000 units SQ TID *Enoxaparin/Lovenox 40 mg SQ daily (WT < 150 kg, CrCl > 30 mL/min) *Enoxaparin/Lovenox 30 mg SQ daily (WT < 150 kg, CrCl > 10-29 mL/min) *Enoxaparin/Lovenox 30 mg SQ BID (WT < 150 kg, CrCl > 30 mL/min) AND/OR *Sequential Compression Device (SCD) 5 or more Highest Order ONE of the following medications: *Heparin 5000 units SQ TID (Preferred with Epidurals) *Enoxaparin/Lovenox 40 mg SQ daily (WT < 150 kg, CrCl > 30 mL/min) *Enoxaparin/Lovenox 30 mg SQ daily (WT < 150 kg, CrCl > 10-29 mL/min) *Enoxaparin/Lovenox 30 mg SQ BID (WT < 150 kg, CrCl > 30 mL/min) AND *Sequential Compression Device (SCD) Assessment and Plan Assessment and Plan Patient is a 66-year-old male with a past medical history significant for DM type II, hypertension, and testosterone deficiency who presented today with delirium and cough and is admitted for pneumonia. Problem List: (1) CAP (community acquired pneumonia) ICD Codes: J18.9 - Pneumonia, unspecified organism Plan: - CXR shows left lower lobe patchy infiltrate - Causative ddx includes S. pneumo, mycoplasma, Moraxella, MSSA, viral URI, Klebsiella, vs other. Less likely MRSA or pseudomonas being community-acquired pneumonia. - WBC 7.1 initially now 13, neutrophil % 75, temp 103 supporting infectious etiology. - Influenza negative Plan: - Azithromycin 500 mg by mouth every 24 hours x 5 days. - Rocephin 1 g IV every 24 hours for duration of hospitalization. - Duonebs Q 6 hours scheduled. - Albuterol Q1 hr PRN SOB. - Supplemental O2 and pulse ox monitoring. - Acapella, incentive spirometer. - Blood cultures x 2 - Sputum cultures - pneumococcal and legionella urinary antigens -slightly decreased platelets which may be from infection, rechecked today and stable/slightly improved (2) Type 2 diabetes mellitus with Charcot's joint arthropathy ICD Codes: E11.610 - Type 2 diabetes mellitus with Charcot's joint arthropathy Status: Chronic Plan: Hold home Lantus 26units HS and Lispro 6units TIDAC, Exenatide 2mg SQ Q7days, metformin 1000mg PO BID, Jardiance 25mg PO daily Medium dose SSI with Accuchecks Diabetic Diet (3) Benign essential HTN ICD Codes: I10 - Benign essential HTN Status: Chronic Plan: Continue home clonidine 0.2mg PO BID, Hydralazine 100mg PO Q12H, Metoprolol 150mg PO BID, Fosinopril 40mg PO BID (4) ARTHUR (obstructive sleep apnea) ICD Codes: G47.33 - Obstructive sleep apnea (adult) (pediatric) Status: Chronic Plan: CPAP at night at home, continue inpatient his may bring in his own machine (5) Nutrition, metabolism, and development symptoms ICD Codes: R63.8 - Other symptoms and signs concerning food and fluid intake Plan: Fluids: NS @ 125ml/hr Electrolytes: wnl, continue to monitor and replete PRN Nutrition: Diabetic Diet DVT PPx: Lovenox 40mg SQ Q24H, SCD's Problem Qualifiers (1) CAP (community acquired pneumonia): Qualified Codes: J18.1 - Lobar pneumonia, unspecified organism Simona Miles MD Jul 20, 2017 10:27
[2017-07-20] MEDS: DORZOLAMIDE/TIMOLOL OPTH SOLN 10 ML BTL RIGHT EYE SCH ×2 (11:28→21:16)
[2017-07-20] MEDS: KETOPROFEN PO SCH ×3 (11:31→18:03)
[2017-07-20] MEDS: DULoxetine HCl DR 30 MG CAP PO SCH (11:32)
--- NOTE | 2017-07-20 16:46 | EKG ---
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 Compared to prior tracing no significant change ABNORMAL ECG PREVIOUS TRACING : 02/17/2013 21.22 DOCTOR: Raffi Walker Interpretating Date/Time 07/20/2017 16:45:34
[2017-07-20] MEDS ORDERED: cefTRIAXone INJ 1,000 MG in SODIUM CHLORIDE 0.9% INJ 100 ML IV SCH (19:30)
[2017-07-20] MEDS ORDERED: PRAVASTATIN SOD 20 MG TAB PO SCH (21:00)
[2017-07-20] MEDS ORDERED: MONTELUKAST SODIUM 10 MG TAB PO SCH (21:00)
[2017-07-20] MEDS ORDERED: LATANOPROST 0.005% OPHT SOLN 2.5 ML BTL RIGHT EYE SCH (21:00)
[2017-07-20] MEDS: ENOXAPARIN SODIUM 40 MG/0.4 ML SYRINGE SQ SCH (22:45)
[2017-07-21] VITALS: BP 166/77; PULSE 79; RESP 16; TEMP 98.3; O2SAT 93
[2017-07-21] MEDS: SODIUM CHLOR 0.9% 1000 ML INJ 1,000 ML IV SCH ×2 (00:05→08:35)
[2017-07-21 04:00] VITALS: BP 178/84; PULSE 80; RESP 18; TEMP 98.9; O2SAT 93
[2017-07-21] MEDS: ACETAMINOPHEN/HYDROcodone 325 MG/10 MG TAB PO PRN ×2 (04:25→08:53)
[2017-07-21] MEDS: SODIUM CHLORIDE 0.9% FLUSH 10 ML FLUSH IV FLUSH SCH (07:35)
[2017-07-21 07:44] LABS: HEMATOCRIT 36.7 % (39.0-51.0); MEAN CORPUSCULAR HGB CONC 32.4 % (32.0-36.0); PLATELET COUNT 124 TH/MM3 (150-450); RED BLOOD COUNT 5.16 MIL/MM3 (4.50-5.90); RED CELL DISTRIBUTION WIDTH 15.6 % (11.6-17.2); REVIEW FLAG FINAL; WHITE BLOOD COUNT 9.1 TH/MM3 (4.0-11.0)
[2017-07-21] MEDS: INSULIN ASPART SUPPLEMENTAL SCALE SQ SCH ×2 (08:00→12:00)
[2017-07-21 08:10] LABS: BICARBONATE 22.4 MEQ/L (21.0-32.0); POTASSIUM 3.8 MEQ/L (3.5-5.1)
[2017-07-21] MEDS: DULoxetine HCl DR 30 MG CAP PO SCH (08:17)
[2017-07-21] MEDS: KETOPROFEN PO SCH ×2 (08:18→13:07)
[2017-07-21] MEDS: AZITHROMYCIN 250 MG TAB PO SCH (08:18)
[2017-07-21] MEDS: GABAPENTIN 300 MG CAP PO SCH ×2 (08:19→13:07)
[2017-07-21] MEDS: cloNIDine HCL 0.2 MG TAB PO SCH (08:19)
[2017-07-21] MEDS: METOPROLOL TARTRATE 50 MG TAB PO SCH (08:19)
[2017-07-21] MEDS: LISINOPRIL 20 MG TAB PO SCH (08:19)
[2017-07-21] MEDS: hydrALAZINE HCL 100 MG TAB PO SCH (08:19)
[2017-07-21] MEDS: ASPIRIN EC 81 MG TABEC PO SCH (08:19)
[2017-07-21 08:30] VITALS: BP 180/81; PULSE 80; RESP 17; TEMP 98.1
[2017-07-21] MEDS: DORZOLAMIDE/TIMOLOL OPTH SOLN 10 ML BTL RIGHT EYE SCH (08:54)
--- NOTE | 2017-07-21 10:02 | PQ ---
Physician Query Response Document PATIENT: HUY CEDILLO : 1950 ADMIT DATE: 07/19/2017 10:11 PM DISCH DATE: RESPONDING PROVIDER #: Ilene QUERY TEXT: Rule Out Sepsis Clarification Sepsis is documented in the Medical Record. Please clarify whether: -- Patient has sepsis - Please document confirmed, suspected or probable localized infection - Please clarify if sepsis was present on admission -- Sepsis was ruled out (include corresponding diagnosis for patient?s clinical picture and treatment ) -- Patient had sepsis which is resolved -- Other, please specify The patient's Clinical Indicators include: T 103 HR 129 Pneumonia, unspecified organism WBC 7.1 initially now 13, neutrophil % 75, temp 103 supporting infectious etiology. - Influenza negative pneumococcal and legionella urinary antigens -slightly decreased platelets which may be from infection Query created by: Larissa Adams on 07/20/2017 12:36 PM RESPONSE TEXT: He is septic with strep pneumo and his pneumonia Electronically signed by: Simona Miles MD 07/21/2017 9:58 AM
[2017-07-21] MEDS ORDERED: AZIT250T3 PO (11:34)
--- NOTE | 2017-07-21 11:34 | HHI.DCPOC ---
Discharge Care Plan Diagnosis: (1) CAP (community acquired pneumonia) Goals to Promote Your Health * To prevent worsening of your condition and complications * To maintain your health at the optimal level Directions to Meet Your Goals Take your medications as prescribed Follow your dietary instruction Follow activity as directed Keep your appointments as scheduled Take your immunizations and boosters as scheduled If your symptoms worsen call your PCP, if no PCP go to Urgent Care Center or Emergency Room Smoking is Dangerous to Your Health. Avoid second hand smoke Call the 24-hour hour crisis hotline for domestic abuse at Davidson Samano MD R3 Jul 21, 2017 11:34
[2017-07-21 12:00] VITALS: BP 179/86; PULSE 65; RESP 20; TEMP 97.7; O2SAT 96
--- NOTE | 2017-07-21 12:19 | HHI.FPPN ---
Subjective Remarks No acute events. Having minimal coughing. Continues to have significant runny nose. Did not sleep well overnight. Afebrile since admission. Had nausea overnight but no vomiting, Zofran helped. No abdominal pain. No diarrhea. No sore throat. No leukocytosis today. (Davidson Samano MD R3) Objective Vitals Vital Signs Date Time Temp Pulse Resp B/P (MAP) Pulse Ox O2 Delivery O2 Flow Rate FiO2 07/21/17 08:30 98.1 80 17 180/81 (114) 07/21/17 04:00 98.9 80 18 178/84 (115) 93 07/21/17 00:00 98.3 79 16 166/77 (106) 93 07/20/17 22:35 21 07/20/17 20:40 97.8 83 18 164/78 (106) 94 07/20/17 20:26 93 07/20/17 20:00 98.3 93 18 143/70 (94) 94 07/20/17 16:20 98.4 83 18 136/67 (90) 95 I/O 07/20/17 07/20/17 07/20/17 07/21/17 07/21/17 07/21/17 07:00 15:00 23:00 07:00 15:00 23:00 Intake Total 240 ml 720 ml 1747 ml 340 ml Output Total 250 ml Balance -10 ml 720 ml 1747 ml 340 ml Intake Oral 240 ml 720 ml IV Total 1747 ml 340 ml Output Urine Total 250 ml # Voids 2 10 2 # Bowel Movements 1 (Davidson Samano MD R3) Result Diagram: 07/21/17 0641 07/21/17640 Objective Remarks GENERAL: Sitting up in chair, no distress SKIN: No rashes HEAD: Normocephalic. EYES: No conjunctivitis ENT: Clear runny nose, no pharyngeal erythema or exudates NECK: No lymphadenopathy CARDIOVASCULAR: Regular rate and rhythm without murmurs, gallops, or rubs. RESPIRATORY: Has rhonchi, good air entry, no wheezing, not requiring oxygen, normal O2 saturation, no respiratory distress, no coughing during exam. GASTROINTESTINAL: Abdomen soft, non-tender, nondistended. Normal bowel sounds. MUSCULOSKELETAL: No edema NEUROLOGICAL: Awake and alert. (Davidson Samano MD R3) A/P Assessment and Plan 66-year-old male with a past medical history significant for DM type II, hypertension, and testosterone deficiency who presented with delirium and cough , found to have pneumococcal pneumonia. Much improved after Ceftriaxone and Azithromycin. Now afebrile, no leukocytosis, symptoms starting to improve, not requiring oxygen. Discharge Planning Plan for discharge home today. Return to hospital or call doctor if high fevers , symptom start to worsen, feel short of breath, start vomiting. Stay well hydrated, continue full course of antibiotics at home. See primary care physician within a week. Recommended following up for pneumonia and flu vaccines. (Davidson Samano MD R3) Attending Attestation Patient seen and examined. Case reviewed and discussed with the resident team. Agree with plan of care as discussed with me and documented in the resident note. he is ready and happy to go home. he is breathing well and comfortably and responding well to his abx (Simona Miles MD) Problem List: (1) CAP (community acquired pneumonia) ICD Codes: J18.9 - Pneumonia, unspecified organism Plan: CXR showed left lower lobe patchy infiltrate. Urine has pneumococcal antigen. Blood cultures negative. Afebrile for over 24 hours. Leukocytosis resolved. Not requiring oxygen. Symptoms improving. - Received Rocephin IV during hospitalization - Will continue Azithromycin 500 mg for a total of 7 days. 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 Encourage a healthy well balanced diet. (3) Benign essential HTN ICD Codes: I10 - Benign essential HTN Status: Chronic Plan: Continue home clonidine 0.2mg PO BID, Hydralazine 100mg PO Q12H, Metoprolol 150mg PO BID, Fosinopril 40mg PO BID (4) ARTHUR (obstructive sleep apnea) ICD Codes: G47.33 - Obstructive sleep apnea (adult) (pediatric) Status: Chronic Plan: Continue CPAP for sleep apnea. (5) Nutrition, metabolism, and development symptoms ICD Codes: R63.8 - Other symptoms and signs concerning food and fluid intake Plan: Fluids: Transition to PO fluids, eating and drinking normal Electrolytes: wnl Nutrition: Diabetic Diet DVT PPx: Lovenox 40mg SQ Q24H (Davidson Samano MD R3) Problem Qualifiers (1) CAP (community acquired pneumonia): Qualified Codes: J18.1 - Lobar pneumonia, unspecified organism Davidson Samano MD R3 Jul 21, 2017 12:19 Simona Miles MD Jul 21, 2017 13:14
--- NOTE | 2017-07-21 13:05 | HHI.DS ---
Discharge Summary Admission Date Jul 19, 2017 at 22:11 Discharge Date: Jul 21, 2017 Admitting Diagnosis sepsis, pneumonia (1) CAP (community acquired pneumonia) Diagnosis: Principal Plan: CXR showed left lower lobe patchy infiltrate. Urine has pneumococcal antigen. Blood cultures negative. Afebrile for over 24 hours. Leukocytosis resolved. Not requiring oxygen. Symptoms improving. - Received Rocephin IV during hospitalization - Will continue Azithromycin 500 mg for a total of 7 days. 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 Encourage a healthy well balanced diet. 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 ICD Codes: G47.33 - Obstructive sleep apnea (adult) (pediatric) Status: Chronic (5) Nutrition, metabolism, and development symptoms Diagnosis: Principal Plan: Fluids: Transition to PO fluids, eating and drinking normal Electrolytes: wnl Nutrition: Diabetic Diet DVT PPx: Lovenox 40mg SQ Q24H ICD Codes: R63.8 - Other symptoms and signs concerning food and fluid intake Consultants None Procedures None Brief History Mr Garner is a 66-year-old male with a past medical history significant for DM type II, ARTHUR, hypertension, and testosterone deficiency who presented with delirium, high fever and cough. Per patient's , patient was feeling congested with a sore throat for the past couple days. This morning, she took him to her work clinic for a cough and he was prescribed a Z-Jovan. He had achy muscles and vomited several times but denies other GI sxs. He denies SOB as well. He proceeded to go out to lunch and do chores around the house when he suddenly started acting delirious and spiking a fever of 101. His gave him Tylenol and called 911 because he was unable to get into the car. He was brought to the emergency department via [facility] where he was found to have a temperature of 103 F. He was admitted and started on abx for a community acquired pneumonia. He feels improved today but is still having the sore throat and generalized achiness. He used bipap last night as he did not have his home machine but is not in any respiratory distress nor using accessory muscles. CBC/BMP: 07/21/17 0641 07/21/17 0641 Significant Findings Laboratory Tests Test 07/19/17 19:45 07/19/17 20:10 07/20/17 07:17 07/21/17 06:41 Mean Corpuscular Volume 71.2 FL (80.0-100.0) 71.9 FL (80.0-100.0) 71.0 FL (80.0-100.0) Mean Corpuscular Hemoglobin 22.8 PG (27.0-34.0) 23.0 PG (27.0-34.0) 23.0 PG (27.0-34.0) Platelet Count 117 TH/MM3 (150-450) 128 TH/MM3 (150-450) 124 TH/MM3 (150-450) Neutrophils % (Manual) 75 % (16-70) Lymphocytes % 7 % (9-44) Eosinophils % 5 % (0-4) Platelet Estimate LOW (NORMAL) Random Glucose 128 MG/DL (74-106) Total Protein 6.3 GM/DL (6.4-8.2) Calcium Level 8.0 MG/DL (8.5-10.1) 8.0 MG/DL (8.5-10.1) Sodium Level 135 MEQ/L (136-145) 135 MEQ/L (136-145) Urine Glucose (UA) 1000 mg/dL (NEG) White Blood Count 13.4 TH/MM3 (4.0-11.0) Neutrophils (%) (Auto) 85.3 % (16.0-70.0) Lymphocytes (%) (Auto) 8.8 % (9.0-44.0) Neutrophils # (Auto) 11.5 TH/MM3 (1.8-7.7) Hemoglobin 11.9 GM/DL (13.0-17.0) Hematocrit 36.7 % (39.0-51.0) Creatinine 0.54 MG/DL (0.60-1.30) PE at Discharge GENERAL: Sitting up in chair, no distress SKIN: No rashes HEAD: Normocephalic. EYES: No conjunctivitis ENT: Clear runny nose, no pharyngeal erythema or exudates NECK: No lymphadenopathy CARDIOVASCULAR: Regular rate and rhythm without murmurs, gallops, or rubs. RESPIRATORY: Has rhonchi, good air entry, no wheezing, not requiring oxygen, normal O2 saturation, no respiratory distress, no coughing during exam. GASTROINTESTINAL: Abdomen soft, non-tender, nondistended. Normal bowel sounds. MUSCULOSKELETAL: No edema NEUROLOGICAL: Awake and alert. Hospital Course 66 year old male presented to the ED on 07/19, patient of Dr. Aleja Hillman. He presented with cough and confusion. He had congestion and a sore throat for a few days prior. He had fever up to 103. Chest x-ray showed a patchy left lower lobe infiltrate. Urine antigen positive for pneumococcus. He was treated with Ceftriaxone IV and Azithromycin PO with significant improvement. By the day of discharge, he is without fevers, leukocytosis has resolved, blood cultures are negative, he is not requiring oxygen, and he is not vomiting. He is staying well hydrated and eating a normal diet. He continues to have nasal congestion and mild coughing, but symptoms are starting to improve. He has a significant history with diabetes mellitus. We discussed his vaccine status. He would benefit from having pneumonia vaccine and influenza vaccine. He plans to have these done at his PCP's office within the week. Discussed reasons to come back to the hospital or at least call the clinic: high fevers, confusion, intractable vomiting, shortness of breath, inability to tolerate diet/fluids, dehydration, etc. Pt Condition on Discharge: Good Discharge Disposition: Discharge Home Discharge Instructions DIET: Follow Instructions for: Diabetic Diet Activities you can perform: Regular-No Restrictions Follow up Referrals: PCP Follow-up - 1 Week New Medications: Azithromycin (Azithromycin) 250 Mg Tab 500 MG PO DAILY, #5 TAB Continued Medications: Aspirin DR (Aspirin 81) 81 Mg Tabdr 81 MG PO DAILY, TAB 0 Refills Bimatoprost Opth Drops (Lumigan Opth Drops) 0.01% Soln 1 DROP RIGHT EYE HS for Intraocular Pressure, #1 BOTTLE 0 Refills Clonidine (Clonidine) 0.2 Mg Tab 0.2 MG PO BID for Blood Pressure Management, #180 TAB 3 Refills Dorzolamide-Timolol Opth Drops (Cosopt Opth Drops) 22.3-6.8 Mg/Ml Soln 1 DROP RIGHT EYE BID for Glaucoma, #1 BOTTLE [address] (Duloxetine DR) 30 Mg Capdr 30 MG PO DAILY, #30 CAP [address] (Cymbalta DR) 30 Mg Capdr 30 MG PO DAILY, #30 CAP 0 Refills Empagliflozin (Jardiance) 25 Mg Tab 25 MG PO DAILY for Blood Sugar Management, #30 TAB 0 Refills Exenatide Inj (Bydureon Inj) 2 Mg Vial 2 MG SQ Q7D for Blood Sugar Management, #4 INJECTION 0 Refills Fosinopril (Fosinopril) 40 Mg Tab 40 MG PO BID, #30 TAB 0 Refills Gabapentin (Gabapentin) 600 Mg Tab 600 MG PO QID, #360 TAB 3 Refills Hydralazine (Hydralazine) 100 Mg Tab 100 MG PO q12 for Blood Pressure Management, #30 TAB 0 Refills 1/2 tab (50 mg) Take with meals Hydrocodone-Acetaminophen (Hydrocodone-Acetaminophen) 10-325 mg Tab 1 TAB PO Q4H PRN for PAIN, #180 TAB 0 Refills not to be filled before 09-02-17 Insulin Glargine Inj (Lantus Solostar Pen Inj) 300 Unit/3 Ml Pen 26 UNITS SQ HS for Blood Sugar Management, PEN 0 Refills Insulin Lispro (Human) Inj (Humalog Inj) 1,000 Unit/10 Ml Vial 6 UNITS SQ DIRECTED for Blood Sugar Management, #1 VIAL 0 Refills Preprandial Ketoprofen (Ketoprofen) 75 Mg Cap 75 MG PO TID, #270 CAP 3 Refills m-Xunyoznqlhic-[id number] (Metanx) 1 Cap 1 CAPLET PO BID Lovastatin (Lovastatin) 20 Mg Tab 20 MG PO HS for Cholesterol Management, #30 TAB 0 Refills Metformin ER (Metformin ER) 1,000 Mg Josseline 1000 MG PO BID for Blood Sugar Management, #60 TAB 0 Refills With evening meal Metoprolol Tartrate (Metoprolol Tartrate) 50 Mg Tab 3 TAB PO BID, #540 TAB 3 Refills Montelukast (Montelukast) 10 Mg Tab 10 MG PO HS, #30 TAB 0 Refills Tadalafil (Cialis) 20 Mg Tab 20 MG PO DAILY PRN for Erectile Dysfunction, #5 TAB 3 Refills Do not exceed 1 dose/day. Effects may last 36 hr. Testosterone Enanthate Inj (Testosterone Enanthate Inj) 200 Mg/Ml Inj 185 MG IM q14d for Hormone Replacement, #1 VIAL 0 Refills [Cologuard] () 1 KIT [cpap] () 5 Refills 13 cm of water pressure, headgear, nasal pillows and tubing Davidson Samano MD R3 Jul 21, 2017 13:05
[2017-07-21] MEDS ORDERED: AZIT500T2 PO (18:24)
== END 2017-07-21 13:38 | disposition home or self-care (01) | DRG 195 ==
LOC: NEPC 19:04 → NEDA 22:11 → N04B 23:08
PROVIDERS: ADMIT Family Medicine; ATTEND Family Medicine
DX: J13 Pneumonia due to Streptococcus pneumoniae (principal); E11.40 Type 2 diabetes mellitus with diabetic neuropathy, unspecified; I10 Essential (primary) hypertension; E78.5 Hyperlipidemia, unspecified; G47.33 Obstructive sleep apnea (adult) (pediatric); E11.610 Type 2 diabetes mellitus with diabetic neuropathic arthropathy; M14.679 Charcot's joint, unspecified ankle and foot; E29.1 Testicular hypofunction; H40.9 Unspecified glaucoma; Z79.84 Long term (current) use of oral hypoglycemic drugs; Z96.659 Presence of unspecified artificial knee joint
CPT/HCPCS: 71010; 80048; 80053; 81001; 82948; 83605; 85007; 85025; 85027; 87040; 87449; 87804; 93005; 94150; 96365; 96367; J0456; J0696; J1815; J2405; J7030; J7050